=== PATIENT | female | born 1960 | race African-American/Black ===

== ENCOUNTER → 2016-04-20 | Outpatient (CLI) | payer BC ==
[~2016-04-20] VITALS: Ht 175.3 cm; Wt 79.3 kg
[~2016-04-20] MED LIST: ADVIL MIGRAINE200 M1; BUPRENORPHINE HC2 MG TD; CYMBALTA60 MG PO; ERYTHROMYCIN E3.5 G1 OPHTHALMIC; ERYTHROMYCIN E3.5 G3 OPHTHALMIC; FLEXERIL; FLEXERIL PO; IBUPROFEN 200200 M1 PO; IBUPROFEN 600600 M1 PO; MOBIC15 MG PO; MS CONTIN15 MG PO; NOHOMEMEDICATIONS; NORCO 10-325 T1 EAC1 PO; NORCO 10-325 T1 EACH PO; NORTRIPTYLINE H25 M3 PO; OXYCODONE-ACET1 EACH PO; OXYCODONE-APAP1 EAC6 PO; OXYCONTIN15 MG PO; PERCOCET 10-321 EACH PO; PERCOCET 5-3251 EACH PO; PERCOCET 7.5-31 EACH PO; PERCOCET PO; SUBOXONE 8 MG-1 EAC3 SL; TIZANIDINE HCL 22 M1 PO; TRAMADOL 50 MG50 MG; ULTRAM 50MG TAB50 MG PO; ZANAFLEX2 M1 PO
--- NOTE | ~2016-04-20 | HPC ---
[facility] [place] [address] PAIN MANAGEMENT CONSULTATION Name: MIKEL CONKLIN Room #: REG JT Lopez#: [id number] Admission: 04/20/16 Attend Phys: Grupo Hernandez DO Discharge: Date of : 56 Report #: [id number] THIS REPORT FOR: //name// CC: [facility] physician/PCP Grupo Hernandez HISTORY: The patient is a very pleasant 55-year-old female being treated for neuropathic pain, requiring complex medication management and chronic headaches. She had been stable on baseline medications, including MS Contin 15 mg at bedtime and Percocet 7.5/325 b.i.d. 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 She has had some chronic problem with the left posterior occipital "nipple" for the appliance as it tends to get irritated. She does wear a wig, which rubs on this area. Unfortunately, today, it appears that she actually has a small eschar over the area with little secondary infection. I strongly advised the patient that she needs to keep close eye on this, use triple antibiotic if it does not heal within 7-10 days and/or if she starts to get specifically ill, fever, chills, increasing headaches or neck pain, she needs to go to the ER. We reviewed the fact that opiate medications are being used to provide analgesia adequate to support activities of daily living, not attempting to achieve a specific pain score on the 0-10 Visual Analog Scale. The current opiate medications are providing sufficient analgesia to allow the patient to participate in activities of daily living. The patient is not exhibiting any aberrant behavior suggestive of drug diversion. The patient is not having any adverse reactions to medications. The patient is not suffering from daytime somnolence or mental acuity changes. The patient is managing opiate-induced constipation with appropriate dtms-ppb-grnequn agents and dietary considerations. The patient was counseled on concern for caution with operating a motor vehicle while using opiate medications. A physical exam was performed and the patient's functional status was evaluated. All patients with back pain were advised against the bed rest greater than 4 days and were advised to return to normal activities. Pain score assessment was noted and the treatment plan was reviewed with the patient. All current medications, both prescribed and OTC were reviewed and reconciled on the electronic medical record. Tobacco screening was accomplished and smoking cessation was advised when indicated. BMI was noted and diet/exercise modification was recommended for all patients following outside normal parameters. I reviewed with the patient today their responsibilities to safeguard prescription medications, reviewed their responsibility to utilize medications only as prescribed by the physician. They are to seek and receive pain medications only from 1 physician group ( [facility]). They are to use [address] [place] [address] PAIN MANAGEMENT CONSULTATION Name: MIKEL CONKLIN Room #: REG JT Lopez#: [id number] Admission: 04/20/16 Attend Phys: Grupo Hernandez DO Discharge: Date of : 56 Report #: [id number] pharmacy and keep the clinic informed if they change pharmacies. Their responsibilities include making followup visits in a timely fashion and to avoid abrupt discontinuation of medication usage. Their responsibilities further include bringing their medications (bottles from the pharmacy with residual pills) to the visit for possible confirmation of pill counts and the patient understands it is their responsibility to submit to random drug screens to ensure both that the medications prescribed are present, and that no other controlled substances are present. All prescriptions provided today were generated electronically. PHYSICAL EXAMINATION: Otherwise is relatively unchanged. GENERAL: A 55-year-old female. BMI is 25.8 kilograms per meter squared. VITAL SIGNS: Blood pressure is modestly elevated at 157/99, pulse 81 and respirations are 18. NEUROLOGIC: Alert and oriented to person, place and time; judged to be a reasonable historian. MUSCULOSKELETAL: Again, a little bit of erythema and swelling around the posterior occipital cochlear device. I do not detect significant cervical adenopathy. Upper extremity strength is preserved. ASSESSMENT: Neuropathic pain, requiring complex medication management and frequent headaches. RECOMMENDATION: Continue baseline medication, MS Contin 15 mg 1 a day. We will increase Percocet 7.5 from b.i.d to t.i.d. The patient tells me today she has been using a copious amount of ibuprofen. I cautioned her that this can cause significant hepatic and renal problems. I again strongly recommended Neosporin topical for the secondary infection at the cochlear implant side. If this is not significantly improved within a week, follow up with her neurosurgeon. <ELECTRONICALLY SIGNED> By: Grupo Hernandez DO 04/22/16 0824 [id number] Grupo Hernandez DO /nt
[2016-04-20 14:13] VITALS: BP 157/99
== END | disposition home or self-care (01) ==
LOC: PAIN 07:27
DX: M79.2 Neuralgia and neuritis, unspecified (principal); R51 Headache; G89.29 Other chronic pain; F17.200 Nicotine dependence, unspecified, uncomplicated

== ENCOUNTER → 2016-07-20 | Outpatient (CLI) | payer BC ==
[~2016-07-20] VITALS: Ht 175.3 cm; Wt 79.4 kg
--- NOTE | ~2016-07-20 | HPC ---
[facility] [address] [address] PAIN MANAGEMENT CONSULTATION Name: MIKEL CONKLIN Room #: REG JT De Jesus.#: [id number] Admission: 07/20/16 Attend Phys: Grupo Hernandez DO Discharge: Date of : 56 Report #: [id number] THIS REPORT FOR: //name// CC: RYAN physician/PCP Grupo Hernandez SUBJECTIVE: The patient is a pleasant 55-year-old female typically treated for neuropathic pain, requiring complex medication management. She has a surgical implanted cochlear device, left posterior occipital area, which has caused chronic pain for the patient. 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 Last visit, she a small eschar over the external nipple for the cochlear appliance. I was concerned that there was an infection here. I told her to use a topical antibiotic. She has been using Neosporin which seems to have been efficacious for the infection, but now does have a little bit of skin inflammation. I suggested she rotate to Polysporin. There are no cervical either anterior or posterior lymph nodes appreciable. The cochlear implant, however, is exquisitely tender. The patient prefers to wear wigs and occasionally a cap. The wig tends to ride right across the cochlear implant site. Given that I have been treating her for years, she has never used the external device enabling hearing from that ear. 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 I suggested she follow up with the implanting ENT surgeon at [facility] and consider explantation of the device. It seems to be causing her more problems than benefit. Again, I have long encouraged her to try and use the device having gone through the expense, risks and effort of having it implanted. At this point, I think it might be better if she simply look into getting it removed. From a pain standpoint, she notes the current medication seems to be helpful. She uses 1 MS Contin typically at bedtime, it does cause some sedation. She uses oxycodone 7.5/325 one tablet 2-3 times a day for subjective pain. Pain is all in the left side of the head and face, she rates it 3/10 at present. The pain seems to be exacerbated with anything contacting the left posterior occiput or emotional stress. PHYSICAL EXAMINATION GENERAL: A pleasant 55-year-old female, BMI is 25.8 kilograms per meter squared. VITAL SIGNS: Stable. She is afebrile. MUSCULOSKELETAL: Again, exquisitely tender over the cochlear implant "nipple". I do not see any eschar in this area, but it is exquisitely tender again. Fortunately, there were no lymph nodes noted. We reviewed the fact that opiate medications are being used to provide analgesia adequate to support activities of daily living, not attempting to achieve a [address] [address] PAIN MANAGEMENT CONSULTATION Name: CONKLIN,MIKEL M Room #: REG JT Lopez#: [id number] Admission: 07/20/16 Attend Phys: Grupo Hernandez DO Discharge: Date of : 56 Report #: [id number] specific pain score on the 0-10 Visual Analog Scale. The current opiate medications are providing sufficient analgesia to allow the patient to participate in activities of daily living. The patient is not exhibiting any aberrant behavior suggestive of drug diversion. The patient is not having any adverse reactions to medications. The patient is not suffering from daytime somnolence or mental acuity changes. The patient is managing opiate-induced constipation with appropriate omyh-hii-xiympln agents and dietary considerations. The patient was counseled on concern for caution with operating a motor vehicle while using opiate medications. A physical exam was performed and the patient's functional status was evaluated. All patients with back pain were advised against the bed rest greater than 4 days and were advised to return to normal activities. Pain score assessment was noted and the treatment plan was reviewed with the patient. All current medications, both prescribed and OTC were reviewed and reconciled on the electronic medical record. Tobacco screening was accomplished and smoking cessation was advised when indicated. BMI was noted and diet/exercise modification was recommended for all patients following outside normal parameters. I reviewed with the patient today their responsibilities to safeguard prescription medications, reviewed their responsibility to utilize medications only as prescribed by the physician. They are to seek and receive pain medications only from 1 physician group ( [facility]). They are to use 1 pharmacy and keep the clinic informed if they change pharmacies. Their responsibilities include making followup visits in a timely fashion and to avoid abrupt discontinuation of medication usage. Their responsibilities further include bringing their medications (bottles from the pharmacy with residual pills) to the visit for possible confirmation of pill counts and the patient understands it is their responsibility to submit to random drug screens to ensure both that the medications prescribed are present, and that no other controlled substances are present. All prescriptions provided today were generated electronically. ASSESSMENT: Chronic pain, neuropathic pain component, left posterior occiput, requiring complex medication management. Last urine drug screen on 02/21/2016, positive for morphine. She uses the Percocet p.r.n. RECOMMENDATION: Continue current medication unchanged, MS Contin 15 mg at bedtime, Percocet 7.5/325 one tablet 2-3 times a day as needed for breakthrough pain. I have taken the liberty of writing for 2 months of current medication. Again, recommend she follow up with her implanting ENT physician at [facility] to discuss consideration for explanting the cochlear implant. Currently, the patient notes pain impact score is fairly low with medications. In fact, she scores 55/70 without use of medication. Opiate risk assessment tool scores the patient 4 or moderate risk. [facility] [address] [place] [address] PAIN MANAGEMENT CONSULTATION Name: MIKEL CONKLIN Room #: REG JT Lopez#: [id number] Admission: 07/20/16 Attend Phys: Grupo Hernandez DO Discharge: Date of : 56 Report #: [id number] We reviewed risks for smoking cessation, patient is an everyday smoker. She was counseled regarding the same. Discharged in good, stable condition. Follow up in 2 months for reevaluation. Urine drug screen was accomplished today. No aberrant behavior suggestive for drug diversion, simply complying with opiate xhsydsg-az-vgeml contract. Again, urine screen in February was positive for morphine. She states that she used her oxycodone perhaps 2 days ago. There may or may not be oxycodone in the screen. By: [id number] Grupo Hernandez DO /nt
[2016-07-20 13:41] VITALS: BP 131/78
== END | disposition home or self-care (01) ==
LOC: PAIN 06:59
DX: G62.9 Polyneuropathy, unspecified (principal)

== ENCOUNTER → 2016-10-19 | Outpatient (CLI) | payer BC ==
[~2016-10-19] VITALS: Ht 175.3 cm; Wt 78.1 kg
[2016-10-19 13:17] VITALS: BP 158/88
== END | disposition home or self-care (01) ==
LOC: PAIN 06:54
DX: G62.9 Polyneuropathy, unspecified (principal); Z98.890 Other specified postprocedural states; F17.200 Nicotine dependence, unspecified, uncomplicated

== ENCOUNTER → 2017-01-21 | Outpatient (CLI) | payer BC ==
[~2017-01-21] VITALS: Ht 175.3 cm; Wt 78.9 kg
--- NOTE | ~2017-01-21 | HPC ---
[facility] [place] [address] PAIN MANAGEMENT CONSULTATION Name: MIKEL CONKLIN Room #: REG [facility] Liza.#: [id number] Admission: 01/21/17 Attend Phys: Grupo Hernandez, DO Discharge: Date of : 56 Report #: [id number] THIS REPORT FOR: //name// CC: [facility] physician/PCP Grupo Hernandez HISTORY OF PRESENT ILLNESS: The patient is a 56-year-old female well known to the pain clinic, being treated for left hemicranial pain, neuropathic pain component status post left cochlear implant requiring high risk complex medication management. Last urine drug screen on 07/20/2016 was positive for prescribed medication. Last seen in the pain clinic on 10/19/2016, continued on MS Contin 15 mg at bedtime, Percocet 7.5/325 three a day. He returns to pain clinic today. Pain impact score is about 55/70. Subjective pain score is 1 presently. Notes pain continues to the left side of the face and head. Doing well with current medications. I was pleased to note that she has started to use her cochlear implant little more, she had had some infection at the cochlear implant "nipple" site posterior occiput, left. This is resolved. She is very concerned today, notes that her cousin had a CVA, cousin was 49 years of age. We talked at length today again about smoking cessation. 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 PHYSICAL EXAMINATION: Today shows a 56-year-old female, BMI is 25.7 kilograms per meter squared. Blood pressure modestly elevated at 152/94, pulse 68. Reviewing medical record, she has consistently been modestly hypertensive, blood pressures typically in the 130-140 range systolic and diastolic in the 80-90 range. She has some tenderness in the posterior occiput, unfortunately the cochlear implant site does not appear to be infected at this time. She has no cervical adenopathy. We reviewed the fact that opiate medications are being used to provide analgesia adequate to support activities of daily living, not attempting to achieve a specific pain score on the 0-10 Visual Analog Scale. The current opiate medications are providing sufficient analgesia to allow the patient to participate in activities of daily living. The patient is not exhibiting any aberrant behavior suggestive of drug diversion. The patient is not having any adverse reactions to medications. The patient is not suffering from daytime somnolence or mental acuity changes. The patient is managing opiate-induced constipation with appropriate ttbz-gxu-pnmrejk agents and dietary considerations. The patient was counseled on concern for caution with operating a motor vehicle while using opiate medications. A physical exam was performed and the patient's functional status was evaluated. [address] [address] PAIN MANAGEMENT CONSULTATION Name: MIKEL CONKLIN Room #: REG [facility] John#: [id number] Admission: 01/21/17 Attend Phys: Grupo Hernandez DO Discharge: Date of : 56 Report #: [id number] All patients with back pain were advised against the bed rest greater than 4 days and were advised to return to normal activities. Pain score assessment was noted and the treatment plan was reviewed with the patient. All current medications, both prescribed and OTC were reviewed and reconciled on the electronic medical record. Tobacco screening was accomplished and smoking cessation was advised when indicated. BMI was noted and diet/exercise modification was recommended for all patients following outside normal parameters. I reviewed with the patient today their responsibilities to safeguard prescription medications, reviewed their responsibility to utilize medications only as prescribed by the physician. They are to seek and receive pain medications only from 1 physician group ( [facility]). They are to use 1 pharmacy and keep the clinic informed if they change pharmacies. Their responsibilities include making followup visits in a timely fashion and to avoid abrupt discontinuation of medication usage. Their responsibilities further include bringing their medications (bottles from the pharmacy with residual pills) to the visit for possible confirmation of pill counts and the patient understands it is their responsibility to submit to random drug screens to ensure both that the medications prescribed are present, and that no other controlled substances are present. All prescriptions provided today were generated electronically. ASSESSMENT: Left hemicranial pain, neuropathic pain component requiring high risk complex medication management, status post "cochlear implant, stable on baseline medications. RECOMMENDATIONS: Continue current medication unchanged for another 2 months. Follow up at that time. <ELECTRONICALLY SIGNED> By: Grupo Hernandez DO 01/22/17 0926 [id number] Grupo Hernandez DO /nt
[2017-01-21 12:57] VITALS: BP 152/94
== END ==
LOC: PAIN 07:09
DX: Z76.0 Encounter for issue of repeat prescription (principal); G43.909 Migraine, unspecified, not intractable, without status migrainosus; G43.809 Other migraine, not intractable, without status migrainosus; G62.9 Polyneuropathy, unspecified; F17.210 Nicotine dependence, cigarettes, uncomplicated; Z79.899 Other long term (current) drug therapy

== ENCOUNTER → 2017-04-19 | Outpatient (CLI) | payer BC ==
[~2017-04-19] VITALS: Ht 175.3 cm; Wt 77.1 kg
--- NOTE | ~2017-04-19 | HPC ---
[facility] [place] [address] PAIN MANAGEMENT CONSULTATION Name: MIKEL CONKLIN Room #: REG JT De Jesus.#: [id number] Admission: 04/19/17 Attend Phys: Grupo Hernandez, DO Discharge: Date of : 56 Report #: [id number] THIS REPORT FOR: //name// CC: [facility] physician/PCP Grupo Hernandez DATE OF SERVICE: 04/19/2017 The patient is a 56-year-old female, well known to pain clinic, being treated for left hemifacial pain, neuropathic pain, primarily left posterior temporal, status post left cochlear implant requiring high risk complex medication management. Last seen in the pain clinic 01/21/2017. Last drug screen 07/20/2016 was positive for prescribed medications. Continues on MS Contin 15 mg at bedtime, Percocet 7.5/325 t.i.d. Returns to Pain Clinic today noting medications are generally providing sufficient analgesia to participate in activities of daily living, rates the pain a 5-6 on the Visual Analog Scale. Primarily pain in the left side of the head and face. Exacerbated with contact over the area of the cochlear implant, though she typically wears a wig, which nearly abuts this area. She uses the implant actually only p.r.n. because she does not like the cosmetic appearance, though she is the first person to admit that she does have significantly improved auditory acuity when she wears it (?). The patient continues to smoke daily down to half pack a day, which she was counseled regarding the same. PHYSICAL EXAMINATION: GENERAL: Shows a 56-year-old female, BMI is 25.1 kg per meter squared. VITAL SIGNS: Blood pressure is modestly elevated 152/92, pulse 73, respirations 20. NECK: Cervical range of motion is full. No cervical adenopathy is appreciated. cloth desizing range tender over the left postauricular area. We reviewed the fact that opiate medications are being used to provide analgesia adequate to support activities of daily living, not attempting to achieve a specific pain score on the 0-10 Visual Analog Scale. The current opiate medications are providing sufficient analgesia to allow the patient to participate in activities of daily living. The patient is not exhibiting any aberrant behavior suggestive of drug diversion. The patient is not having any adverse reactions to medications. The patient is not suffering from daytime somnolence or mental acuity changes. The patient is managing opiate-induced constipation with appropriate kxbg-vhw-cmzekcn agents and dietary considerations. The patient was counseled on concern for caution with operating a motor vehicle while using opiate medications. A physical exam was performed and the patient's functional status was evaluated. All patients with back pain were advised against the bed rest greater than [address] [place] [address] PAIN MANAGEMENT CONSULTATION Name: MIKEL CONKLIN Room #: REG JT Lopez#: [id number] Admission: 04/19/17 Attend Phys: Grupo Hernandez DO Discharge: Date of : 56 Report #: [id number] days and were advised to return to normal activities. Pain score assessment was noted and the treatment plan was reviewed with the patient. All current medications, both prescribed and OTC were reviewed and reconciled on the electronic medical record. Tobacco screening was accomplished and smoking cessation was advised when indicated. BMI was noted and diet/exercise modification was recommended for all patients following outside normal parameters. I reviewed with the patient today their responsibilities to safeguard prescription medications, reviewed their responsibility to utilize medications only as prescribed by the physician. They are to seek and receive pain medications only from 1 physician group ( [facility]). They are to use 1 pharmacy and keep the clinic informed if they change pharmacies. Their responsibilities include making followup visits in a timely fashion and to avoid abrupt discontinuation of medication usage. Their responsibilities further include bringing their medications (bottles from the pharmacy with residual pills) to the visit for possible confirmation of pill counts and the patient understands it is their responsibility to submit to random drug screens to ensure both that the medications prescribed are present, and that no other controlled substances are present. All prescriptions provided today were generated electronically. ASSESSMENT: Left hemicranial pain, neuropathic pain component, requiring high risk complex medication management, stable on baseline medications. RECOMMENDATION: Renew MS Contin 15 mg at bedtime, Percocet 7.5/325 t.i.d. Follow up in 3 months for reevaluation. We did get a buccal drug swab today, should be positive for aforementioned medications and/or metabolites. <ELECTRONICALLY SIGNED> By: Grupo Hernandez DO 04/21/17 0816 1607 [id number] Grupo Hernandez DO /nt
[2017-04-19 14:16] VITALS: BP 152/92
== END ==
LOC: PAIN 07:06
DX: G50.1 Atypical facial pain (principal); Z79.899 Other long term (current) drug therapy; Z96.21 Cochlear implant status

== ENCOUNTER → 2017-07-19 | Outpatient (CLI) | payer BC ==
[~2017-07-19] VITALS: Ht 175.3 cm; Wt 80.5 kg
--- NOTE | ~2017-07-19 | HPC ---
[facility] [place] [address] PAIN MANAGEMENT CONSULTATION Name: MIKEL CONKLIN [facility] #: [facility] [id number] Admission: 07/19/17 Attend Phys: Grupo Hernandez, DO Discharge: Date of : 56 Report #: [id number] THIS REPORT FOR: //name// CC: RYAN physician/PCP Grupo Hernandez DATE OF SERVICE: 07/19/2017 The patient is a 56-year-old female, long known to the pain clinic, being treated for neuropathic pain, left hemifacial primarily left posterior temporal status post left cochlear implant requiring high risk complex medication management. Last seen in the pain clinic on 04/19/2017. Random drug screen at that time was negative for prescribed medications. It has been 88 days since she had received 90-day prescription for her medications. She gets MS Contin 15 mg 1 at bedtime, Percocet 7.5/325 one tablet up to 3 times a day. This equates to approximately 48 mg of morphine equivalents daily. She does note that she occasionally takes the Percocet 4 a day. She rarely takes MS Contin in the morning. 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 She does smoke, but is down to less than half a pack a day. She was again counseled regarding smoking. She notes pain is well controlled with current medication. She rates it actually zero at present, though she notes pain in the postauricular area is exacerbated when she wears a wig, which she does regularly. She has difficulty with the cochlear implant noting that the connection with the permanent implant in the postauricular skull is a bit problematic again with the wig. She does note, however, that it does afford better auditory acuity. We reviewed the fact that opiate medications are being used to provide analgesia adequate to support activities of daily living, not attempting to achieve a specific pain score on the 0-10 Visual Analog Scale. The current opiate medications are providing sufficient analgesia to allow the patient to participate in activities of daily living. The patient is not exhibiting any aberrant behavior suggestive of drug diversion. The patient is not having any adverse reactions to medications. The patient is not suffering from daytime somnolence or mental acuity changes. The patient is managing opiate-induced constipation with appropriate rcub-csl-pyspqsw agents and dietary considerations. The patient was counseled on concern for caution with operating a motor vehicle while using opiate medications. A physical exam was performed and the patient's functional status was evaluated. All patients with back pain were advised against the bed rest greater than 4 days and were advised to return to normal activities. Pain score assessment was noted and the treatment plan was reviewed with the patient. All current medications, both prescribed and OTC were reviewed and reconciled on the electronic medical record. Tobacco screening was accomplished and smoking [address] [address] PAIN MANAGEMENT CONSULTATION Name: MIKEL CONKLIN Room #: REG CL John#: [id number] Admission: 07/19/17 Attend Phys: Grupo Hernandez DO Discharge: Date of : 56 Report #: [id number] cessation was advised when indicated. BMI was noted and diet/exercise modification was recommended for all patients following outside normal parameters. I reviewed with the patient today their responsibilities to safeguard prescription medications, reviewed their responsibility to utilize medications only as prescribed by the physician. They are to seek and receive pain medications only from 1 physician group ( [facility]). They are to use 1 pharmacy and keep the clinic informed if they change pharmacies. Their responsibilities include making followup visits in a timely fashion and to avoid abrupt discontinuation of medication usage. Their responsibilities further include bringing their medications (bottles from the pharmacy with residual pills) to the visit for possible confirmation of pill counts and the patient understands it is their responsibility to submit to random drug screens to ensure both that the medications prescribed are present, and that no other controlled substances are present. All prescriptions provided today were generated electronically. PHYSICAL EXAMINATION: Shows a pleasant 56-year-old female, BMI is 26.2 kilograms per meter squared. Vital signs stable as noted on the EMR. As noted, she does smoke daily down to less than half a pack a day, drinks alcohol socially. Medication list was reconciled. The original opiate consent to treat contract was signed 11/09/2015. Cranial nerves 2-12 are grossly intact. A little bit hard of hearing, cochlear implant, left postauricular is unremarkable. She has a little cervical adenopathy, left side is fairly nominal. Upper extremity strength is symmetric. ASSESSMENT: Neuropathic pain, postauricular left side, status post cochlear implant with ongoing pain in this area. RECOMMENDATION: After a long discussion with the patient, I have elected to continue MS Contin 15 mg 1 at bedtime, Percocet 7.5/325 up to 3 a day, taken the liberty of writing for 2 months of current medication. Follow up in 7-8 weeks. We will repeat a random drug swab at that time. If concordant with medication, we will continue. <ELECTRONICALLY SIGNED> By: Grupo Hernandez DO 07/21/17 0819 1626 17 Grupo Hernandez, DO /nt
[2017-07-19 14:24] VITALS: BP 138/88
== END ==
LOC: PAIN 07:08
DX: M79.2 Neuralgia and neuritis, unspecified (principal); H70.812 Postauricular fistula, left ear; Z96.21 Cochlear implant status

== ENCOUNTER → 2017-09-03 | Outpatient (CLI) | payer BC ==
[~2017-09-03] VITALS: Ht 175.3 cm; Wt 80.3 kg
--- NOTE | ~2017-09-03 | HPC ---
[facility] [address] PAIN MANAGEMENT CONSULTATION Name: MIKEL CONKLIN Room #: REG Jase De Jesus.#: [id number] Admission: 09/03/17 Attend Phys: Grupo Hernandez DO Discharge: Date of : 56 Report #: [id number] THIS REPORT FOR: //name// CC: Rik Reeder The patient is a 56-year-old female, long treated for neuropathic pain, left hemifacial primarily posterior temporal. Pain started status post left cochlear implant. 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 Pain, however, started following the implantation of the cochlear implant. Pain is at the site of the external connection posterior to the left ear. We have tried the patient on a multiplicity of medications. She has been generally stable with MS Contin 15 mg at bedtime and Percocet 7.5/325 up to 3 a day for breakthrough pain. It equates to roughly 48 mg of morphine daily. This does put her in the lower risk stratification (0-50, 50-90 and 90+ milligram of morphine equivalents daily). She does continue to smoke and was counseled regarding same. Last random drug screen on 04/09/2017 was negative for prescribed medications. It had been 88 days since she had been given a 90-day prescription for her medications. The patient did admit to taking some of her medications a little bit earlier. She returns to the pain clinic today noting she has been much more judicious regarding the use of her medications. She has been taking the morphine simply at bedtime and Percocet 0-4 a day, averaging at 90 a month. She notes the pain is relatively well controlled with current medication. In fact rates her pain as 0 at present. PHYSICAL EXAMINATION: Shows a pleasant 56-year-old female, BMI is 26.1 kilograms per meter squared. Blood pressure 134/77, pulse 66 and respirations are 15. Cervical range of motion is full. Upper extremity strength is preserved. She does have some tenderness in the left sternocleidomastoid and tenderness over the posterior auricular area. She does typically wear a wig and the wig does seem to rub across the cochlear implant "nipple" that connects to the external auditory appliance. We reviewed the fact that opiate medications are being used to provide analgesia adequate to support activities of daily living, not attempting to achieve a specific pain score on the 0-10 Visual Analog Scale. The current opiate medications are providing sufficient analgesia to allow the patient to participate in activities of daily living. The patient is not exhibiting any [address] [address] PAIN MANAGEMENT CONSULTATION Name: MIKEL CONKLIN Room #: REG [facility].#: [id number] Admission: 09/03/17 Attend Phys: Grupo Hernandez DO Discharge: Date of : 56 Report #: [id number] aberrant behavior suggestive of drug diversion. The patient is not having any adverse reactions to medications. The patient is not suffering from daytime somnolence or mental acuity changes. The patient is managing opiate-induced constipation with appropriate dqny-gxp-cblvaqe agents and dietary considerations. The patient was counseled on concern for caution with operating a motor vehicle while using opiate medications. A physical exam was performed and the patient's functional status was evaluated. All patients with back pain were advised against the bed rest greater than 4 days and were advised to return to normal activities. Pain score assessment was noted and the treatment plan was reviewed with the patient. All current medications, both prescribed and OTC were reviewed and reconciled on the electronic medical record. Tobacco screening was accomplished and smoking cessation was advised when indicated. BMI was noted and diet/exercise modification was recommended for all patients following outside normal parameters. I reviewed with the patient today their responsibilities to safeguard prescription medications, reviewed their responsibility to utilize medications only as prescribed by the physician. They are to seek and receive pain medications only from 1 physician group ( [facility]). They are to use 1 pharmacy and keep the clinic informed if they change pharmacies. Their responsibilities include making followup visits in a timely fashion and to avoid abrupt discontinuation of medication usage. Their responsibilities further include bringing their medications (bottles from the pharmacy with residual pills) to the visit for possible confirmation of pill counts and the patient understands it is their responsibility to submit to random drug screens to ensure both that the medications prescribed are present, and that no other controlled substances are present. All prescriptions provided today were generated electronically. ASSESSMENT: Neuropathic pain, left posterior auricular with chronic headaches requiring complex medication management. RECOMMENDATIONS: 1. The patient again counseled regarding smoking cessation. 2. We will repeat buccal drug swab today. It should be positive for both morphine and oxycodone. 3. I have taken the liberty of writing for 3 months of current medication. I will have the patient follow up with her primary physician, Dr. Darnell Tran to find another pain physician. I am leaving the area and moving out of state. Unfortunately, my practice partners will not be able to absorb all of my practice. I have given the patient 3 months of medication and asked her to follow up with her primary care physician to find another pain physician provider. We will be happy to send her records forward. [facility] [address] [place] [address] PAIN MANAGEMENT CONSULTATION Name: MIKEL CONKLIN Room #: REG [facility]#: [id number] Admission: 09/03/17 Attend Phys: Grupo Hernandez DO Discharge: Date of : 56 Report #: [id number] Discharged in good and stable condition. <ELECTRONICALLY SIGNED> By: Grupo Hernandez DO 09/06/17 0709 1520 0650 Grupo Hernandez DO /nt
[2017-09-03 12:41] VITALS: BP 134/77
== END ==
LOC: PAIN 07:34
DX: M79.2 Neuralgia and neuritis, unspecified (principal); R51 Headache; Z79.899 Other long term (current) drug therapy

== ENCOUNTER → 2017-12-29 | Outpatient (CLI) | payer BC ==
[~2017-12-29] VITALS: Ht 175.3 cm; Wt 80.5 kg
--- NOTE | ~2017-12-29 | HPC ---
[facility] [place] [address] PAIN MANAGEMENT CONSULTATION Name: KATERINMIKEL Feliciano Room #: [facility] [id number] Admission: 12/29/17 Attend Phys: Kevin Hernandez DO Discharge: Date of : 56 Report #: [id number] THIS REPORT FOR: //name// CC: Kevin Altamirano MD DATE OF SERVICE: 12/29/2017 REFERRING PHYSICIAN: Kurtis Altamirano MD. CHIEF COMPLAINT: Left hemifacial pain. HISTORY OF PRESENT ILLNESS: As you know, the patient is a 57-year-old female who has been followed by [facility] for a very long period of time starting in 2012, progressing through 2018 for left hemifacial pain. The patient recently has undergone 2 different random drug screens, both of which were negative for a portion of the medication we were providing. She returns today in followup visit having been advised to seek new evaluation and treatment from another pain service by my partner who was the treating physician. She returns stating a pain level of 10/10, requesting refill on medications. She has denied any changes in her medical history. She has had no new injury or trauma or any changes in her treatment courses. She returns to discuss medication management. ALLERGIES: No known drug allergies. CURRENT MEDICATIONS: Ibuprofen 200 mg p.r.n., MS ER 15 mg p.o. at bedtime, Percocet 7.5/325 one tab p.o. q. 8 hours p.r.n. for pain. SOCIAL HISTORY: The patient reports she continues to smoke 1 pack tobacco per day and has done so for years. She admits to at least one-fifth to two-fifth of vodka per day. She is not working, not receiving workmen's compensation. She is unaccompanied at today's visit. IMAGING: No new imaging available. PHYSICAL EXAMINATION: VITAL SIGNS: Blood pressure 172/90, pulse 71, respiratory rate 16 and unlabored. The patient is 100% on room air. Height 5 feet 9 inches tall, weight 177.4 pounds, BMI calculated 26.2. GENERAL: Well-developed, well-nourished, well-hydrated, 57-year-old female, who appears under the influence of alcohol. She is slurring her speech. She is having difficulty concentrating. She has an unusual affect. She is an unreliable historian. She smells strongly of tobacco smoke. HEENT: Normocephalic, atraumatic. Pupils are sluggish[place] [address] PAIN MANAGEMENT CONSULTATION Name: MIKEL CONKLIN Room #: REG [facility]#: [id number] Admission: 12/29/17 Attend Phys: Kevin Hernandez DO Discharge: Date of : 56 Report #: [id number] are intact. Sclerae nonicteric without injection. NEUROLOGIC: Speech is slurred. Cranial nerves 2-12 grossly intact. MUSCULOSKELETAL: There is some palpatory tenderness over the left postauricular area. There are no changes in skin color or texture. Mild restriction of motion to the left of the cervical region. ASSESSMENT: 1. Neuropathic pain. 2. Left ear pain. 3. Opioid dependency. 4. Complicated medical therapy utilizing scheduled medications. 5. Chronic intractable pain. PLAN: 1. The patient has returned today in followup visit where we have discussed the last visit she had with her prescribing physician, Dr. Grupo Hernandez. I have called the patient's attention to the discussion that they had at last visit indicating that she would need to follow up with her primary care physician and obtain a referral to a new Pain Service. There were indications in the chart patient was being inappropriate with medications. In fact, recent drug screen showed 2 negatives for medications we were providing. The most recent showed negative for morphine, positive for oxycodone. Given the lack of consistency with these urine drug screens, we have advised the patient at that last visit that we would be no longer willing to provide opioid medications in her case. Unfortunately, the patient did not heed Dr. Lombardo's discussion and has returned today having been out of her opioid medications for nearly 10 days. She returns requesting refill on medications. 2. The patient and I had a very long discussion about her current condition. Today, she appears to be under the influence of alcohol or some other substance. Given her speech pattern, the changes in her ocular reflexes, it appears to be more related to alcohol than benzodiazepines or opioids. The patient admits to drinking at least a fifth to two fifths of vodka per day. I am very concerned about this patient's condition. We have offered to have the patient driven home. She says she has a ride and is not driving herself. I have cautioned the patient about driving in this condition. This in conjunction with other issues have made us very concerned about this patient's ongoing care. The patient and I discussed her opioid use. Unfortunately, she has shown negative for these opiates multiple times. This would indicate that she is unreliable with use of the medication. I do not feel comfortable with continuing writing these medications and will not be providing ongoing care for this patient. We have discussed with the patient today that based on our calculation, she would have been out of medications approximately 10 days ago. She confirms this to us today. When questioned whether or not she had any withdrawal-like symptoms when she came off the medication, she indicated she did [facility] [address] [place] [address] PAIN MANAGEMENT CONSULTATION Name: MIKEL CONKLIN [id number] Admission: 12/29/17 Attend Phys: Kevin Hernandez DO Discharge: Date of : 56 Report #: [id number] not as she was "taking them from her kids." This is extremely concerning and aberrant behavior thus further proving our concern of patient with opioids is warranted. We have at this time advised the patient that we would not be providing long-term opioid management in her case given the discussion above. We have offered to the patient a weaning protocol to come off of the opioid medication in a consistent and appropriate fashion. This would reduce the patient's potential risk of opioid withdrawal and provide the patient an appropriate weaning off of the opioid medications entirely. The following prescription was provided to the patient with the understanding that she will wean appropriately. 3. The patient was provided a final prescription of Percocet 7.5/325 one tab p.o. t.i.d. for 1 week, then reduce to 2 tabs p.o. q. day for 1 week, then 1 tab p.o. q. day for 1 week and then off the medication entirely. She was given #45 tablets, no refills. 4. We have offered to the patient phone numbers and contact information in regards to Alcoholics Anonymous and addiction specialists including Narcotics Anonymous. I strongly suggest this patient look into treatment. She has certainly an addiction to cigarettes, addiction to alcohol and I am concerned she also has addictions to her opioids. She does need assistance to get off the alcohol to treat her opioid addiction issue and to reduce her reliance on smoking. We have offered this information to the patient today. Whether she will follow up with the appropriate individuals is our hope. 5. We will be discharging this patient from our clinic and returning her care to her primary care physician. We cautioned that physician to be careful with the use of opioid medications, monitor her alcohol use and to discuss with her smoking cessation. <ELECTRONICALLY SIGNED> By: Kevin Hernandez DO 01/04/18 1300 [id number] 0201 Kevin Hernandez DO /nt
[2017-12-29 14:16] VITALS: BP 172/90
== END ==
LOC: PAIN 06:59
DX: G50.1 Atypical facial pain (principal); H92.02 Otalgia, left ear; G89.4 Chronic pain syndrome; F11.20 Opioid dependence, uncomplicated; Z79.899 Other long term (current) drug therapy